=== PATIENT | female | born 1965 | race Caucasian/White ===

== ENCOUNTER 2017-01-24 07:57 | Emergency (ER) | payer OTHER ==
[2017-01-24 08:03] VITALS: BP 121/67; PULSE 87; TEMP 97.7; BMI 25.7
--- NOTE | 2017-01-24 08:36 | PDOC ---
History of Present Illness - General Chief Complaint: Pain Stated Complaint: RIGHT HAND PAIN Time Seen by Provider: 01/24/17 08:17 History Source: Patient Exam Limitations: No Limitations - History of Present Illness Initial Comments: 01/24/17 08:32 51 yr female with 2 weeks pain to right thumb worse at night with numbness and tingling radiates up the arm. Pt denies injury states she lifts heavy items and that causes the pain . no fever no headache. Pt is right hand dominant. Past History - Past Medical History Allergies/Adverse Reactions: Allergies Allergy/AdvReac Type Severity Reaction Status Date / Time sulfamethoxazole Allergy Rash Verified 01/24/17 07:59 [From Bactrim] trimethoprim [From Bactrim] Allergy Rash Verified 01/24/17 07:59 Home Medications: Ambulatory Orders Simvastatin [Zocor -] 10 mg PO HS 10/21/14 Anemia: No Asthma: No Cancer: No Cardiac Disorders: No CVA: No COPD: No CHF: No Dementia: No Diabetes: No GI Disorders: Yes (GERD) Disorders: No HTN: Yes Hypercholesterolemia: Yes Liver Disease: No Psychiatric Problems: No Suicide Attempt (Hx): No Seizures: No Thyroid Disease: No Lung CA: No Other medical history: endometriosis - Surgical History Abdominal Surgery: Yes Appendectomy: Yes Cardiac Surgery: No Cholecystectomy: No Lung Surgery: No Neurologic Surgery: No Orthopedic Surgery: No - Immunization History Immunization Up to Date: Yes - Psycho/Social/Smoking Cessation Hx Anxiety: No Suicidal Ideation: No Smoking Status: No Smoking History: Never smoked Have you smoked in the past 12 months: No Number of Cigarettes Smoked Daily: 0 Cigars Per Day: 0 Information on smoking cessation initiated: No Hx Alcohol Use: No Drug/Substance Use Hx: No Substance Use Type: None Hx Substance Use Treatment: No *Physical Exam - Vital Signs Last Vital Signs Temp Pulse Resp BP Pulse Ox 97.7 F 87 18 121/67 100 01/24/17 08:00 01/24/17 08:00 01/24/17 08:00 01/24/17 08:00 01/24/17 08:00 - Physical Exam General Appearance: Yes: Nourished, Appropriately Dressed HEENT: positive: EOMI, JULIANNE, Normal ENT Inspection Neck: negative: Tender Respiratory/Chest: positive: Lungs Clear, Normal Breath Sounds. negative: Chest Tender Cardiovascular: positive: Regular Rhythm, Regular Rate Musculoskeletal: positive: Normal Inspection Extremity: positive: Normal Capillary Refill, Normal Inspection, Normal Range of Motion, Other (tender to base of right thumb , FROM nv intact). negative: Tender, Swelling, Calf Tenderness, Erythema, Inflammation Integumentary: positive: Normal Color, Dry, Warm Neurologic: positive: Fully Oriented, Alert, Normal Mood/Affect, Normal Response , Motor Strength 12/17 ED Treatment Course - RADIOLOGY Radiology Studies Ordered: Category Date Time Status HAND- RIGHT [RAD] Stat Radiology 01/24/17 08:29 Ordered Medical Decision Making - Medical Decision Making 01/24/17 09:01 cc: right hand wheatley base of thumb for 2 weeks no trauma worse with lifitng heavy objects and at night will get xray will place splint follow up with orthopedist 01/24/17 09:02 *DC/Admit/Observation/Transfer Diagnosis at time of Disposition: Thumb pain Qualifiers: Laterality: right Qualified Code(s): M79.644 - Pain in right finger(s) - Discharge Dispostion Disposition: HOME Condition at time of disposition: Fair - Referrals Referrals: Ori Castrejon [Primary Care Provider] - Erasmo Rm MD [Staff Physician] - Noble Zurita MD [Staff Physician] - - Patient Instructions Additional Instructions: follow with the hand specialist or with [phone] call today to make appointment you can take motrin or tylenol as needed for pain wear the wrist splint especially at night while sleeping
== END 2017-01-24 09:31 | disposition home or self-care (01) ==
LOC: JERFT 07:57
PROC: 2W3CX1Z Immobilization of Right Lower Arm using Splint (ICD-10-PCS; principal; 2017-01-24)
DX: M79.644 Pain in right finger(s) (principal); K21.9 Gastro-esophageal reflux disease without esophagitis; I10 Essential (primary) hypertension; E78.00 Pure hypercholesterolemia, unspecified
CPT/HCPCS: 73130-TC-RT; 99281-25

== ENCOUNTER 2018-11-03 17:39 | Emergency (ER) | payer OTHER ==
[2018-11-03 17:55] VITALS: BP 109/63; PULSE 98; TEMP 98.5; BMI 25.0
[2018-11-03] MEDS ORDERED: DEXAMETHASONE LIQUID 0.5 MG/5 ML 240 ML BULK BOTTLE PO ONE (18:30)
[2018-11-03] MEDS ORDERED: diphenhydrAMINE HCL 25 MG CAPSULE (FP) PO ONE ×2 (18:31→18:35)
[2018-11-03] MEDS ORDERED: DEXAMETHASONE SOD PHOSPHATE 10 MG/1 ML VIAL ONE (18:34)
--- NOTE | 2018-11-03 18:37 | PDOC ---
History of Present Illness - General Chief Complaint: Rash Stated Complaint: ALLIGIES Time Seen by Provider: 11/03/18 18:12 History Source: Patient Exam Limitations: No Limitations - History of Present Illness Initial Comments: 11/03/18 18:31 Patient came for evaluation of rash erupted approximately 3 days ago and is adamant unable to identify cause. Denies changing of soaps, creams, laundry soaps. No one else at home has a rash, denies fever or recent illness, no new medications, no recent travel or exposures known. Timing/Duration: reports: changing over time, getting worse Severity: Yes: mild Location: reports: face (and upper chest) Respiratory Risk Factors: reports: no cause identified Associated Symptoms: reports: denies symptoms, malaise, nasal congestion Past History - Travel Traveled outside of the country in the last 30 days: No Close contact w/someone who was outside of country & ill: No - Past Medical History Allergies/Adverse Reactions: Allergies Allergy/AdvReac Type Severity Reaction Status Date / Time sulfamethoxazole Allergy Rash Verified 11/03/18 17:52 [From Bactrim] trimethoprim [From Bactrim] Allergy Rash Verified 11/03/18 17:52 Home Medications: Ambulatory Orders Diphenhydramine HCl [Benadryl -] 25 mg PO Q8H PRN #21 capsule 11/03/18 Guaifenesin [Mucinex -] 600 mg PO BID 11/03/18 Lisinopril/Hydrochlorothiazide [Lisinopril-Hctz 10-12.5 mg Tab] 1 each PO DAILY 11/03/18 Oxybutynin Chloride 5 mg PO DAILY 11/03/18 Simvastatin 20 mg PO DAILY 11/03/18 Anemia: No Asthma: No Cancer: No Cardiac Disorders: No CVA: No COPD: No CHF: No Dementia: No Diabetes: No GI Disorders: Yes (GERD) Disorders: No HTN: Yes Hypercholesterolemia: Yes Liver Disease: No Psychiatric Problems: No Seizures: No Thyroid Disease: No Lung CA: No - Surgical History Abdominal Surgery: Yes Appendectomy: Yes Cardiac Surgery: No Cholecystectomy: No Lung Surgery: No Neurologic Surgery: No Orthopedic Surgery: No - Immunization History Immunization Up to Date: Yes - Suicide/Smoking/Psychosocial Hx Smoking Status: No Smoking History: Never smoked Have you smoked in the past 12 months: No Number of Cigarettes Smoked Daily: 0 Cigars Per Day: 0 Hx Alcohol Use: No Drug/Substance Use Hx: No Substance Use Type: None Hx Substance Use Treatment: No Review of Systems - Review of Systems Able to Perform ROS?: Yes Is the patient limited Lao proficient: Yes Constitutional: Yes: Symptoms Reported, See HPI, Fever, Malaise HEENTM: Yes: Symptoms Reported Respiratory: Yes: Symptoms reported, See HPI, Cough Integumentary: Yes: Symptoms Reported All Other Systems: Reviewed and Negative *Physical Exam - Vital Signs Last Vital Signs Temp Pulse Resp BP Pulse Ox 98.5 F 98 H 18 109/63 98 11/03/18 17:52 11/03/18 17:52 11/03/18 17:52 11/03/18 17:52 11/03/18 17:52 - Physical Exam General Appearance: Yes: Nourished, Appropriately Dressed, Apparent Distress HEENT: positive: JULIANNE, Normal ENT Inspection, Normal Voice (no swelling to lips , tongue,), TMs Normal, Pharynx Normal. negative: Nasal Congestion Neck: positive: Supple. negative: Tender, Lymphadenopathy (R), Lymphadenopathy (L) Respiratory/Chest: positive: Lungs Clear, Normal Breath Sounds. negative: Rhonchi, Stridor, Wheezing Musculoskeletal: positive: Normal Inspection Integumentary: positive: Normal Color, Pale, Rash (fine maculopapular rash to chest wall and extend up to chin. Mildly erythematous, nonvesicular, non-weeping , no patterns.) Neurologic: positive: broadcast producer II-XII NML intact, Fully Oriented, Alert, Normal Mood/ Affect, Normal Response, Motor Strength 5/5 Moderate Sedation - Procedure Monitoring Vital Signs: Procedure Monitoring Vital Signs Temperature 98.5 F 11/03/18 17:52 Pulse Rate 98 H 11/03/18 17:52 Respiratory Rate 18 11/03/18 17:52 Blood Pressure 109/63 11/03/18 17:52 O2 Sat by Pulse Oximetry (%) 98 11/03/18 17:52 Progress Note - Progress Note Progress Note: Dermatitis of unknown etiology. Probable some type of contact dermatitis. Patient given 1 dose of Decadron to help with itching and reversal of probable ALLERGIC component *DC/Admit/Observation/Transfer Diagnosis at time of Disposition: Pruritic rash - Discharge Dispostion Disposition: HOME Condition at time of disposition: Stable Decision to Admit order: No - Referrals - Patient Instructions Printed Discharge Instructions: DI for Rash Additional Instructions: Rest, keep cool and dry- avoid strenuous activity or hot /humid environments Less hot showers, no abrasive soaps May use heavy creams like Eucerin or Cetaphil to keep skin moist May apply Aveeno, calamine lotion, [id number] hydrocortisone creams as needed for symptoms May use Benadryl at night for antihistamine, Zyrtec/ Leah or Claritin for daytime antihistamine use to help with itching May use [id number] hydrocortisone cream on all areas except face Try to identify cause for rash and avoid exposures Followup with PMD in one week if no resolution Make appointment with metal bench patternmaker for evaluation when possible - Post Discharge Activity
== END 2018-11-03 18:43 | disposition home or self-care (01) ==
LOC: JERFT 17:39
DX: R21 Rash and other nonspecific skin eruption (principal); K21.9 Gastro-esophageal reflux disease without esophagitis; I10 Essential (primary) hypertension; E78.00 Pure hypercholesterolemia, unspecified
CPT/HCPCS: 99281-25

== ENCOUNTER 2019-07-04 09:06 | Day surgery (SDC) | payer OTHER ==
[2019-07-03 11:24] VITALS: BMI 25.0
[2019-07-04] MEDS ORDERED: BACITRACIN 15 GM TUBE TOPICAL OINTMENT ONE (12:31)
[2019-07-04] MEDS ORDERED: LIDOCAINE 1%-EPI 1:100,000 30 ML MDV IJ ONE (12:31)
[2019-07-04] MEDS ORDERED: PROPOFOL 20 ML ONE (13:16)
[2019-07-04] MEDS ORDERED: MIDAZOLAM HCL 2 MG/2 ML SINGLE DOSE VIAL ONE (13:16)
[2019-07-04] MEDS ORDERED: SUCCINYLCHOLINE CHLORIDE 200 MG/10 ML SYRINGE ONE (13:16)
[2019-07-04] MEDS ORDERED: ONDANSETRON 4 MG/2 ML VIAL ONE (13:17)
[2019-07-04] MEDS ORDERED: DEXAMETHASONE SOD PHOSPHATE 4 MG/1 ML VIAL ONE (13:17)
[2019-07-04] MEDS ORDERED: ceFAZolin SODIUM 1 GM VIAL ONE (13:17)
[2019-07-04] MEDS ORDERED: SODIUM CHLORIDE 0.9% P/F 10 ML VIAL IJ ONE (13:17)
[2019-07-04] MEDS ORDERED: KETOROLAC TROMETHAMINE 30 MG/1 ML VIAL ONE (13:17)
[2019-07-04] MEDS ORDERED: LIDOCAINE HCL/PF 2% SDV 5ML VIAL ONE (13:17)
[2019-07-04] MEDS ORDERED: ceFAZolin SODIUM 1 GM VIAL IVPB ONE (13:52)
--- NOTE | 2019-07-04 14:08 | HP ---
DATE OF ADMISSION: 07/04/2019 HISTORY OF PRESENT ILLNESS: Patient is a 53-year-old female for Ambulatory Surgery. She is to undergo a cystocele repair and transvaginal taping. She does have history of chronic cystitis with recurrent urinary tract infections. She states that she oozes urine when she coughs, sneezes, or lifts anything heavy. She claims that this has been increasing in severity and requires 4 to 6 pads per day. PAST MEDICAL HISTORY: She history of internal hemorrhoids, as well as endometriosis. 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 She also has history of hypertriglyceridemia, high blood pressure, iron deficiency anemia, adult onset diet controlled diabetes, a small uterine fibroid and symptomatic right wrist demyelinating neuropathy. PAST SURGICAL HISTORY: She did undergo a laparotomy 3 years ago. MEDICATIONS: She is on Lupron for her endometriosis. Patient also takes lisinopril with hydrochlorothiazide, simvastatin, Xypex for allergies, iron, TriCor, Premarin vaginal cream, vitamin E, Vitamin D, Zantac and Flonase on a p.r.n. basis. She was treated with conservative management including Kegel exercises and multiple anticholinergics without relief; therefore, the patient is scheduled to undergo the surgical procedure. SOCIAL HISTORY: She denies and ethanolism or tobacco. ALLERGIES: She is allergic to SULFUR. PHYSICAL EXAMINATION: Abdomen: Her abdomen is soft. There was no CVA tenderness. No hepatosplenomegaly is palpated. Bowel sounds are normoactive. Pelvic: Revealed a grade 3 cystocele with a positive Ismael test. Vaginal mucosa was slightly atrophic. No inguinal lymph nodes were palpable. Extremities: Revealed full range of motion with no cyanosis, clubbing, or edema. Dorsalis pedis pulses were normal. IMPRESSION: A 53-year-old female who is 2, para 2, postmenopausal with a cystocele and stress urinary incontinence. She will undergo a cystocele repair and transvaginal obturator tapping. This was explained fully to the patient and she consents. Perico [id number]
[2019-07-04] MEDS ORDERED: ePHEDrine SULFATE 50 MG/1 ML AMPULE ONE (14:16)
[2019-07-04] MEDS ORDERED: LIDOCAINE 1%/EPI 1:100000 (50 ML MULTI DOSE VIAL) NR ONE (14:30)
[2019-07-04] MEDS ORDERED: BACITRACIN 15 GM TUBE TOPICAL OINTMENT TP ONE (14:51)
[2019-07-04] MEDS ORDERED: oxyCODONE HCL 5 MG TABLET PO PRN (15:05)
[2019-07-04] MEDS ORDERED: ONDANSETRON 4 MG/2 ML VIAL IVPUSH PRN (15:05)
[2019-07-04] MEDS ORDERED: LACTATED RINGERS SOLUTION 1,000 ML IV SCH (15:15)
--- NOTE | 2019-07-04 15:56 | OP ---
DATE OF OPERATION: 07/04/2019 PREOPERATIVE DIAGNOSES: Cystocele, stress urinary incontinence. POSTOPERATIVE DIAGNOSES: Cystocele, stress urinary incontinence. OPERATIVE PROCEDURES: Cystocele repair and transobturator taping as per [employer]. ANESTHESIA: General. DESCRIPTION OF PROCEDURE: Under above-stated anesthesia, patient was prepped and draped in the usual sterile manner. She was placed in the dorsal lithotomy position. A weighted vaginal speculum was placed in the floor of the vagina. Stay sutures were placed on either side of the labia majora. A 16-St Helenian Aquino was placed in the urethra. Inspection of the roof of the vagina revealed a grade 3 cystocele. The roof of the vagina was infiltrated with lidocaine with epinephrine for hemostatic purposes. A vertical incision was made from the midurethra to the cervical os. This was carried down through skin and subcutaneous tissue. Using both blunt and sharp dissection, a right and left vaginal flap was performed. The tendinous arches on the right and left side of the pelvis were palpated. Using a dermal graft which was cut in the shape of the defect in the roof of the vagina, this was placed on the roof of the vagina and tacked to the tendinous arch using 2-0 Vicryl suture ligatures proximal, mid and distal portions on the right and left sides. Transobturator needles were then placed per the obturator canal in the internal sides which came out of the ipsilateral sides of the urethral-vesical angles on the right and left side of the vagina. The tape was grasped and brought out. The tape was placed at the midurethral level. No pressure was applied. The tape ends were cut at the skin surface. Excess vaginal mucosa was excised. Cystoscopy was performed and this revealed no invasion by the needles or the tape. The roof of the vagina was then closed using running 3-0 Vicryl suture ligatures. The Aquino was attached to a leg bag and vaginal packing was placed in the vaginal introitus. The patient tolerated the procedure well. She returned to the recovery room in good condition. Perico [id number]
[2019-07-04 16:21] VITALS: TEMP 97.6
[2019-07-04 18:12] VITALS: BP 112/71; PULSE 80
== END 2019-07-04 18:00 | disposition home or self-care (01) ==
LOC: JASU-SURG 09:06
PROVIDERS: ATTEND Urology
PROC: 0TSD0ZZ Reposition Urethra, Open Approach (ICD-10-PCS; 2019-07-04)
PROC: 0JQC0ZZ Repair Pelvic Region Subcutaneous Tissue and Fascia, Open Approach (ICD-10-PCS; principal; 2019-07-04 12:00)
DX: N81.10 Cystocele, unspecified (principal); N39.3 Stress incontinence (female) (male)
CPT/HCPCS: 57240; 57288; C1781; 81025; 94760

== ENCOUNTER 2021-04-19 22:47 | Emergency (ER) | payer OTHER ==
[2021-04-19 23:24] VITALS: BP 104/70; PULSE 75; TEMP 98.1; BMI 25.4
[2021-04-20 02:13] LABS: EPI CELLS 10 /uL (0-25.1); HYALINE CASTS 14 /uL (0-3.1); URINE APPEARANCE TURBID; URINE BACTERIA 29 /uL (0-1359); URINE BILIRUBIN NEGATIVE (NEGATIVE); URINE COLOR YELLOW; URINE GLUCOSE (UA) NEGATIVE (NEGATIVE); URINE KETONE TRACE (NEGATIVE); URINE LEUK ESTERASE 3+ (NEGATIVE); URINE NITRITE NEGATIVE (NEGATIVE); URINE PROTEIN 2+ (NEGATIVE); URINE RBC 2816 /uL (0-23.9); URINE UROBILINOGEN 0.2 mg/dL (0.2-1.0); URINE WBC 18453 /uL (0-25.8)
[2021-04-20] MEDS ORDERED: ACETAMINOPHEN 325 MG TABLET (FP) PO ONE (02:27)
[2021-04-20] MEDS ORDERED: ACETAMINOPHEN 325 MG TABLET (FP) ONE (02:39)
== END 2021-04-20 02:43 | disposition home or self-care (01) ==
LOC: JER 22:47
DX: N39.0 Urinary tract infection, site not specified (principal)
CPT/HCPCS: 81003; 87086; 99283-25

== ENCOUNTER 2021-12-01 09:21 | Emergency (ER) | payer OTHER ==
[2021-12-01 09:34] VITALS: BP 104/69; PULSE 92; TEMP 97.9; BMI 24.3
[2021-12-01] MEDS ORDERED: LIDOCAINE 5% TOPICAL PATCH TP ONE (10:32)
[2021-12-01] MEDS ORDERED: KETOROLAC TROMETHAMINE 30 MG/1 ML VIAL IM ONE (10:32)
[2021-12-01] MEDS ORDERED: KETOROLAC TROMETHAMINE 30 MG/1 ML VIAL ONE ×2 (10:42→10:46)
[2021-12-01] MEDS ORDERED: LIDOCAINE 5% TOPICAL PATCH ONE (10:42)
[2021-12-01] MEDS ORDERED: LIDOCAINE PATCH REMOVAL MC ONE (22:00)
== END 2021-12-01 11:09 | disposition home or self-care (01) ==
LOC: JERFT 09:21
PROC: 3E0233Z Introduction of Anti-inflammatory into Muscle, Percutaneous Approach (ICD-10-PCS; principal; 2021-12-01)
DX: S39.012A Strain of muscle, fascia and tendon of lower back, initial encounter (principal); X50.0XXA Overexertion from strenuous movement or load, initial encounter
CPT/HCPCS: 99284-25

== ENCOUNTER 2022-01-19 11:35 | Emergency (ER) | payer OTHER ==
[2022-01-19 12:00] VITALS: BP 102/69; PULSE 84; TEMP 97.9; BMI 24.7
[2022-01-19] MEDS ORDERED: ONDANSETRON 4 MG/2 ML VIAL IVPUSH ONE (12:29)
[2022-01-19] MEDS ORDERED: PANTOPRAZOLE SODIUM 40 MG VIAL IVPUSH ONE (12:29)
[2022-01-19] MEDS ORDERED: MAG HYDROX/AL HYDROX/SIMETH 30 ML UNIT-DOSE CUP PO ONE (12:29)
[2022-01-19] MEDS ORDERED: PANTOPRAZOLE SODIUM 40 MG VIAL ONE (12:33)
[2022-01-19] MEDS ORDERED: ONDANSETRON 4 MG/2 ML VIAL ONE (12:33)
[2022-01-19] MEDS ORDERED: MAG HYDROX/AL HYDROX/SIMETH 30 ML UNIT-DOSE CUP ONE (12:33)
[2022-01-19 13:04] LABS: HEMATOCRIT 38.9 % (32.4-45.2); LYMPH % 32.5 % (8-40); MCH 29.8 pg (25.7-33.7); MCHC 33.5 g/dl (32.0-36.0); MONO % 4.5 % (3.8-10.2); NEUT % 59.8 % (42.8-82.8); PLATELET COUNT 311 10^3/uL (134-434); RBC 4.37 M/mm3 (3.60-5.2); RDW 13.3 % (11.6-15.6); WHITE BLOOD COUNT 6.8 K/mm3 (4.0-10.0)
[2022-01-19 13:05] LABS: BASO % 0.9 % (0-2.0); EOS % 2.3 % (0-4.5)
[2022-01-19 13:27] LABS: CALCIUM 9.5 mg/dL (8.5-10.1)
[2022-01-19 13:28] LABS: ALBUMIN 4.1 g/dl (3.4-5.0); BLOOD UREA NITROGEN 16.3 mg/dL (7-18)
[2022-01-19 13:31] LABS: CREATININE 0.7 mg/dL (0.55-1.3)
[2022-01-19 13:32] LABS: TOT PROT 7.7 g/dl (6.4-8.2)
[2022-01-19 13:33] LABS: BILIRUBIN,TOTAL 0.4 mg/dL (0.2-1)
== END 2022-01-19 14:45 | disposition home or self-care (01) ==
LOC: JER 11:35
PROC: 3E033GC Introduction of Other Therapeutic Substance into Peripheral Vein, Percutaneous Approach (ICD-10-PCS; principal; 2022-01-19)
DX: R10.13 Epigastric pain (principal)
CPT/HCPCS: 36415; 80053; 83690; 84484; 85025; 93005; 93010; 99284-25

== ENCOUNTER 2022-02-26 09:00 | Day surgery (SDC) | payer OTHER ==
[2022-02-23 15:52] VITALS: BMI 24.9
[2022-02-26] MEDS ORDERED: LIDOCAINE HCL/PF 2% SDV 5ML VIAL ONE (09:04)
[2022-02-26] MEDS ORDERED: PROPOFOL 20 ML ONE ×2 (09:05)
[2022-02-26 11:20] VITALS: TEMP 97
[2022-02-26 11:37] VITALS: BP 126/79; PULSE 90
== END 2022-02-26 11:40 | disposition home or self-care (01) ==
LOC: FASU-ENDO 09:00
PROVIDERS: ATTEND Internal Medicine Gastroenterology
PROC: 0DB68ZX Excision of Stomach, Via Natural or Artificial Opening Endoscopic, Diagnostic (ICD-10-PCS; 2022-02-26)
PROC: 0DB48ZX Excision of Esophagogastric Junction, Via Natural or Artificial Opening Endoscopic, Diagnostic (ICD-10-PCS; 2022-02-26)
PROC: 0DB98ZX Excision of Duodenum, Via Natural or Artificial Opening Endoscopic, Diagnostic (ICD-10-PCS; principal; 2022-02-26 10:56)
DX: K29.50 Unspecified chronic gastritis without bleeding (principal); K20.90 Esophagitis, unspecified without bleeding; R10.13 Epigastric pain
CPT/HCPCS: 88305-TC; 88342-TC

== ENCOUNTER 2022-04-05 22:35 | Emergency (ER) | payer OTHER ==
[2022-04-05 22:41] VITALS: BP 122/83; PULSE 72; RESP 18; TEMP 97.6; BMI 25.0
[2022-04-05] MEDS ORDERED: MAG HYDROX/AL HYDROX/SIMETH 30 ML UNIT-DOSE CUP PO ONE (23:29)
[2022-04-05] MEDS ORDERED: MAG HYDROX/AL HYDROX/SIMETH 30 ML UNIT-DOSE CUP ONE (23:38)
== END 2022-04-06 00:12 | disposition home or self-care (01) ==
LOC: JERFT 22:35 → JER 22:35
DX: R68.2 Dry mouth, unspecified (principal)
CPT/HCPCS: 82962; 99283-25

== ENCOUNTER 2023-01-05 15:28 | Emergency (ER) | payer OTHER ==
[2023-01-05 15:46] VITALS: BP 110/67; PULSE 91; RESP 16; TEMP 98; BMI 25.5
[2023-01-05] MEDS ORDERED: IBUPROFEN 600 MG TABLET (FP) PO ONE ×2 (16:28→16:33)
[2023-01-05] MEDS ORDERED: LIDOCAINE 2.5%/PRILOCAINE 2.5% (5 Gram/TUBE) TP ONE (16:28)
[2023-01-05] MEDS ORDERED: LIDOCAINE 2.5%/PRILOCAINE 2.5% 30 GRAM TUBE TP ONE (16:45)
== END 2023-01-05 17:10 | disposition home or self-care (01) ==
LOC: JERFT 15:28
PROC: 0H9QXZZ Drainage of Finger Nail, External Approach (ICD-10-PCS; principal; 2023-01-05)
DX: R22.31 Localized swelling, mass and lump, right upper limb (principal); M79.644 Pain in right finger(s); L03.011 Cellulitis of right finger
CPT/HCPCS: 87070; 87205; 99283-25

== ENCOUNTER 2023-10-07 08:24 | Emergency (ER) | payer OTHER ==
[2023-10-07 08:29] VITALS: BP 129/74; PULSE 87; RESP 18; TEMP 98.4; BMI 25.7
== END 2023-10-07 09:08 | disposition home or self-care (01) ==
LOC: JER 08:24 → JERFT 08:24
DX: M54.2 Cervicalgia (principal); M65.0 Abscess of tendon sheath
CPT/HCPCS: 99283-25

== ENCOUNTER 2023-11-26 09:54 | Emergency (ER) | payer OTHER ==
[2023-11-26 10:15] VITALS: BP 160/99; PULSE 73; RESP 16; TEMP 98.2; BMI 27.3
[2023-11-26] MEDS ORDERED: KETOROLAC TROMETHAMINE 30 MG/1 ML VIAL ONE (10:28)
[2023-11-26] MEDS ORDERED: ACETAMINOPHEN INJECTION 100 ML IVPB ONE (10:28)
[2023-11-26] MEDS: SODIUM CHLORIDE 0.9% 500 ML INFUS.BAG IV ONE (10:30)
[2023-11-26] MEDS: ACETAMINOPHEN 1000 MG/100 ML BAG IVPB ONE (10:30)
[2023-11-26] MEDS: KETOROLAC TROMETHAMINE 30 MG/1 ML VIAL IVPUSH ONE (10:30)
[2023-11-26 10:49] LABS: EOS % 9.6 % (0-4.5); HEMATOCRIT 42.4 % (32.4-45.2); HEMOGLOBIN 14.3 GM/dL (10.7-15.3); LYMPH % 31.6 % (8-40); MCH 30.2 pg (25.7-33.7); MCHC 33.7 g/dl (32.0-36.0); MEAN CELL VOLUME 89.5 fl (80-96); MEAN PLT VOLUME 8.1 fl (7.5-11.1); MONO % 5.6 % (3.8-10.2); NEUT % 52.2 % (42.8-82.8); PLATELET COUNT 304 10^3/uL (134-434); RBC 4.74 M/mm3 (3.60-5.2); RDW 13.8 % (11.6-15.6); WHITE BLOOD COUNT 7.6 K/mm3 (4.0-10.0)
[2023-11-26 11:06] LABS: POTASSIUM 4.1 mmol/L (3.5-5.1)
[2023-11-26 11:08] LABS: CALCIUM 9.5 mg/dL (8.5-10.1)
[2023-11-26 11:09] LABS: BLOOD UREA NITROGEN 14.1 mg/dL (7-18)
[2023-11-26 11:12] LABS: CREATININE 0.6 mg/dL (0.55-1.3)
[2023-11-26 11:13] LABS: TOT PROT 7.8 g/dl (6.4-8.2)
[2023-11-26 11:14] LABS: BILIRUBIN,TOTAL 0.6 mg/dL (0.2-1)
== END 2023-11-26 14:27 | disposition home or self-care (01) ==
LOC: JER 09:54
PROC: 3E030NZ Introduction of Analgesics, Hypnotics, Sedatives into Peripheral Vein, Open Approach (ICD-10-PCS; principal; 2023-11-26)
PROC: 3E030GC Introduction of Other Therapeutic Substance into Peripheral Vein, Open Approach (ICD-10-PCS; 2023-11-26)
DX: G43.909 Migraine, unspecified, not intractable, without status migrainosus (principal); J01.00 Acute maxillary sinusitis, unspecified; M54.2 Cervicalgia; R20.2 Paresthesia of skin
CPT/HCPCS: 36415; 70450-TC; 80053; 85025; 99284-25; J0131